=== PATIENT | male | born 1955 | race African-American/Black ===

== ENCOUNTER → 2016-06-28 | Outpatient (CLI) | payer BC ==
[~2016-06-28] MED LIST: ACCUPRIL40 MG PO; ACIPHEX 20 MG T20 MG PO; ALLOPURINOL 10100 M1 PO; AMARYL4 MG PO; ANDRODERM1 EAC2 TD; ASPIR 8181 MG PO; ASPIRIN325 PO; ATORVASTATIN CA40 MG PO; BYSTOLIC10 MG PO; CATAPRES0.2 MG PO; CELEBREX 200 M200 M1 PO; CHLORTHALIDONE25 MG PO; CIALIS20 MG PO; COLACE100 MG PO; COREG25 MG PO; EFFIENT10 MG PO; HUMALOG100 UNIT/2 SQ; HYDROCODON-ACE1 EAC7 PO; JANUMET 50-1,01 EACH PO; KLOR-CON 1010 MEQ PO; KLOR-CON M2020 MEQ PO; LASIX 40 MG TAB40 M1 PO; LASIX 40 MG TAB40 M2 PO; LEVEMIR SUBQ; LIPITOR 20 MG T20 M1 PO; METFORMIN HCL500 MG PO; MOBIC7.5 MG PO; NORVASC5 MG PO; PANTOPRAZOLE SO40 M1 PO; POT CHLOR ER PO; RANEXA500 MG PO; REGLAN 10 MG TA10 MG PO; SIMVASTATIN80 MG PO; TRULICITY0.75 MG/0. SQ; TYLENOL325 MG PO; VICODIN PO; VITAMIN D1000 UNI1 PO; VITAMIN D1000 UNIT PO
--- NOTE | ~2016-06-28 | SLE ---
[facility] [address] [address] POLYSOMNOGRAPHY STUDY Name: LICO GORMAN Nabila Room #: REG [facility]#: [id number] Admission: 06/28/16 Attend Phys: Victor Hugo Hanna MD Discharge: Date of : 51 Report #: [id number] THIS REPORT FOR: //name// CC: Conrad Pritchett MD HISTORY OF PRESENT ILLNESS: A 60-year-old male, height 5 feet 8 inches, weight 230 pounds, history of obstructive sleep apnea. COMMENTS: BASELINE PORTION: Total recording time 135 minutes, sleep efficiency 83.5%. No REM sleep seen. Obstructive apnea 0, central apnea 0, hypopnea 17. Apnea/hypopnea index of 9.1 events per sleep hour. Supine 12.9, left lateral 8.1. Periodic limb movement with arousal index 1.6 events per sleep hour. Low oxygen saturation 90%. CPAP TITRATION: Titrated at 6, 8, 10, 11, 12, and 13 cm water pressure. A definite CPAP pressure was not established. Multiple transitional central events were noted. At 13 cm water pressure, the patient was seen for 19 minutes, 5 central apnea, 3 hypopneas, apnea/hypopnea index 25 events per sleep hour, low sat of 94%. IMPRESSION: 1. Obstructive sleep apnea/hypopnea, G47.33. 2. Central apneas noted during CPAP titration as well as snoring. 3. Premature ventricular contractions noted. 4. Periodic limb movement with arousal index 1.6 events per sleep hour. SUGGESTIONS: 1. In addition to specific therapy, the patient should be cautioned regarding driving or operating dangerous machinery unless fully alert. The patient should be cautioned regarding the use of respiratory depressants. Weight loss and TSH per Dr. Hanna. 2. Oral appliance or appropriate surgery may be considered with appropriate followup. 3. As the patient related felt better in the morning, a trial of autotitrating CPAP between 5 and 15 cm water pressure is initially recommended. During our study, an Eson 2 nasal mask large was used with C-Flex of 3, may consider a full facemask. 4. If download is abnormal, consider BiPAP titration night. 5. If signs and symptoms not improved with therapy, further evaluation recommended. Please do not hesitate to contact me if I may be of further assistance. <ELECTRONICALLY SIGNED> By: Froilan Rubio MD 07/02/16 1950 [id number] Froilan Rubio MD /nt
== END ==
LOC: SLEEPLAB 11:19
DX: G47.33 Obstructive sleep apnea (adult) (pediatric) (principal)

== ENCOUNTER → 2016-09-20 | Outpatient (CLI) | payer BC | LOC: CAT 12:13 | DX: J34.2 Deviated nasal septum (principal); R09.89 Other specified symptoms and signs involving the circulatory and respiratory systems ==